=== PATIENT | female | born 1960 | race African-American/Black ===

== ENCOUNTER 2017-08-07 09:36 | Observation (INO) | payer SELFPAY ==
[~2017-08-07] VITALS: Ht 175.3 cm; Wt 77.6 kg
[~2017-08-07 09:36] MED LIST: BUDE6HFA INH; DIGO.25 PO; HYDCHL12.5 PO; Ipratr-Albuterol3 ML NEB; PANT20 PO; PRED5 PO; RISE35 PO; SERT50 PO; VERA240ER PO; Ventolin5 MG/1 ML INH
[2017-08-07 09:57] LABS: BASOPHILS ABSOLUTE AUTO 0.07 K/mm3 (0.00-0.23); BASOPHILS PERCENT AUTO 1 % (0-2); EOSINOPHILS ABSOLUTE AUTO 0.11 K/mm3 (0.00-0.68); EOSINOPHILS PERCENT AUTO 1 % (0-6); Hematocrit 39.6 % (33.0-51.0); IMMATURE GRAN ABSOLUTE AUTO 0.06 K/mm3 (0.00-0.10); IMMATURE GRAN PERCENT AUTO 1 % (0-1); LYMPHOCYTES ABSOLUTE AUTO 4.78 K/mm3 (0.84-5.20); LYMPHOCYTES PERCENT AUTO 42 % (21-46); MONOCYTES PERCENT AUTO 8 % (4-13); Mean Corpuscular HGB 29.3 pg (26.0-34.0); Mean Corpuscular HGB Conc 32.8 g/dL (31.5-36.5); Mean Corpuscular Volume 89 fL (80-100); Mean Platelet Volume 11.2 fL (9.1-12.4); NEUTROPHILS PERCENT AUTO 48 % (41-73); Platelet Count 307 K/mm3 (150-400); RDW Coefficient Variation 14.8 % (11.7-14.2); RDW Standard Deviation 48.2 fL (35.1-46.3); Red Blood Cell Count 4.44 M/mm3 (3.80-5.20); White Blood Cell Count 11.32 K/mm3 (4.00-11.30)
[2017-08-07 10:15] LABS: PCO2 Arterial 32.3 mmHg (35-45); PO2 Arterial 214 mmHg (80-100); pH Blood Arterial 7.51 (7.35-7.45)
[2017-08-07 10:17] LABS: Alanine Aminotransfer (ALT/SGP 24 U/L (12-78); Albumin, Blood 3.8 g/dL (3.4-5.0); Alk Phos 71 U/L (50-136); Anion Gap 8 mmol/L (6-16); Aspartate Aminotrans (AST/SGOT 17 U/L (12-37); Bilirubin, Total 0.3 mg/dL (0.1-1.0); Blood Urea Nitrogen 12 mg/dL (8-24); Bun/Creatinine Ratio 14.4 (12.0-20.0); CO2, Blood 28 mmol/L (21-32); Calcium, Blood 8.7 mg/dL (8.5-10.1); Chloride, Blood 104 mmol/L (98-108); Creatinine, Blood 0.83 mg/dL (0.40-1.00); Globulin, Blood 3.7 g/dL (2.2-4.0); Glomerular Filtration Rate >60 (60-); Glucose, Blood 294 mg/dL (70-99); Potassium, Blood 2.8 mmol/L (3.5-5.5); Sodium, Blood 140 mmol/L (136-145); Total Protein, Blood 7.5 g/dL (6.4-8.2); Troponin I 0.028 ng/mL (0.000-0.040)
[2017-08-07] MEDS ORDERED: TUSSIONEX PENN115 ML (10:27)
[2017-08-07] MEDS ORDERED: Xolair150 MG SQ (10:30)
[2017-08-09] MEDS ORDERED: Novolog100 UNIT/1 SC (13:50)
[2017-08-09] MEDS ORDERED: MONT5TCH PO (13:51)
[2017-08-09] MEDS ORDERED: TEMA30 PO (13:52)
[2017-08-09] MEDS ORDERED: ACCU-CHEK GUID1 EACH MC (13:55)
== END 2017-08-09 15:00 | disposition home or self-care (01) ==
LOC: ER 09:36 → ICUW 10:57 → ER 10:57 → ICUW 10:57 → ER 11:14 → PCU 11:14 → ICUW 11:14 → ICUE 11:42 → PCU 11:49 → ICUE 16:22 → PCU 17:29
PROVIDERS: Emergency Medicine
DX: J45.901 Unspecified asthma with (acute) exacerbation (principal); R06.03 Acute respiratory distress; J96.00 Acute respiratory failure, unspecified whether with hypoxia or hypercapnia; I10 Essential (primary) hypertension; M81.0 Age-related osteoporosis without current pathological fracture; E09.65 Drug or chemical induced diabetes mellitus with hyperglycemia; Z88.0 Allergy status to penicillin; Z85.3 Personal history of malignant neoplasm of breast; Z88.1 Allergy status to other antibiotic agents; Z88.5 Allergy status to narcotic agent; Z88.8 Allergy status to other drugs, medicaments and biological substances; Z79.899 Other long term (current) drug therapy; Z79.52 Long term (current) use of systemic steroids; Z79.01 Long term (current) use of anticoagulants
CPT/HCPCS: 36415; 36600; 71045; 80053; 82803; 82947; 84132; 84484; 85025; 93005; 93010; 94640; 94660; 94760; 96361; 96374; 96375; 96376; 99285; C9113; G0378; J1200; J1642; J1815; J2357; J2930; J3490; J7030; J7060

== ENCOUNTER 2018-12-25 09:54 | Emergency (ER) | payer OTHER ==
[~2018-12-25] VITALS: Ht 172.7 cm; Wt 79.4 kg
[~2018-12-25 09:54] MED LIST changes: +ACCU-CHEK GUID1 EACH MC; +MONT5TCH PO; +Novolog100 UNIT/1 SC; +TEMA30 PO; +TUSSIONEX PENN115 ML; +Xolair150 MG SQ
[2018-12-25] MEDS ORDERED: HYDCHL25 PO (10:38)
[2018-12-25] MEDS ORDERED: GABA300 PO (10:38)
[2018-12-25 10:39] LABS: BASOPHILS ABSOLUTE AUTO 0.05 K/mm3 (0.00-0.23); BASOPHILS PERCENT AUTO 0 % (0-2); EOSINOPHILS ABSOLUTE AUTO 0.03 K/mm3 (0.00-0.68); EOSINOPHILS PERCENT AUTO 0 % (0-6); Hematocrit 36.9 % (33.0-51.0); IMMATURE GRAN ABSOLUTE AUTO 0.04 K/mm3 (0.00-0.10); IMMATURE GRAN PERCENT AUTO 0 % (0-1); LYMPHOCYTES ABSOLUTE AUTO 1.98 K/mm3 (0.84-5.20); LYMPHOCYTES PERCENT AUTO 18 % (21-46); MONOCYTES ABSOLUTE AUTO 0.49 K/mm3 (0.16-1.47); MONOCYTES PERCENT AUTO 4 % (4-13); Mean Corpuscular HGB 28.6 pg (26.0-34.0); Mean Corpuscular HGB Conc 32.5 g/dL (31.5-36.5); Mean Corpuscular Volume 88 fL (80-100); Mean Platelet Volume 11.1 fL (9.1-12.4); NEUTROPHILS ABSOLUTE AUTO 8.64 K/mm3 (1.96-9.15); NEUTROPHILS PERCENT AUTO 77 % (41-73); Platelet Count 318 K/mm3 (150-400); RDW Coefficient Variation 14.6 % (11.7-14.2); RDW Standard Deviation 46.6 fL (35.1-46.3); White Blood Cell Count 11.23 K/mm3 (4.00-11.30)
[2018-12-25] MEDS ORDERED: Vitamin D2000 UNIT PO (10:39)
[2018-12-25 10:56] LABS: Alanine Aminotransfer (ALT/SGP 18 U/L (12-78); Albumin, Blood 3.7 g/dL (3.4-5.0); Alk Phos 46 U/L (50-136); Anion Gap 8 mmol/L (6-16); Aspartate Aminotrans (AST/SGOT 19 U/L (12-37); Bilirubin, Total 0.3 mg/dL (0.1-1.0); Blood Urea Nitrogen 17 mg/dL (8-24); Bun/Creatinine Ratio 24.4 (12.0-20.0); CO2, Blood 30 mmol/L (21-32); Calcium, Blood 9.3 mg/dL (8.5-10.1); Chloride, Blood 102 mmol/L (98-108); Globulin, Blood 3.6 g/dL (2.2-4.0); Glomerular Filtration Rate >60 (60-); Glucose, Blood 223 mg/dL (70-99); Potassium, Blood 2.9 mmol/L (3.5-5.5); Sodium, Blood 140 mmol/L (136-145); Total Protein, Blood 7.3 g/dL (6.4-8.2)
[2018-12-25] MEDS ORDERED: AIRDUO RESPICL1 EAC1 INH (12:18)
== END 2018-12-25 13:51 | disposition home or self-care (01) ==
LOC: ER 09:54
PROVIDERS: Emergency Medicine
DX: J45.901 Unspecified asthma with (acute) exacerbation (principal); J96.01 Acute respiratory failure with hypoxia; E87.6 Hypokalemia; E11.65 Type 2 diabetes mellitus with hyperglycemia; Z91.030 Bee allergy status; Z88.8 Allergy status to other drugs, medicaments and biological substances; Z91.018 Allergy to other foods; Z88.1 Allergy status to other antibiotic agents; Z88.5 Allergy status to narcotic agent; Z88.0 Allergy status to penicillin; Z79.899 Other long term (current) drug therapy; Z79.891 Long term (current) use of opiate analgesic
CPT/HCPCS: 71045; 80053; 85025; 93005; 93010; 94640; 94660; 96361; 96365; 96366; 96375; 99285-25; J1642; J2405; J2765; J2930; J3480; J7030

== ENCOUNTER 2020-05-20 10:26 | Emergency (ER) | payer OTHER ==
[~2020-05-20] VITALS: Ht 167.6 cm; Wt 79.4 kg
[~2020-05-20 10:26] MED LIST changes: +AIRDUO RESPICL1 EAC1 INH; +ALBU90OI INH; +ESCI20 PO; +FLUT1DIS8 INH; +GABA300 PO; +HYDCHL25 PO; +LOSA50 PO; +Loratadine10 MG PO; +MONT10T PO; +PRED20; +Refresh Plus1 EACH BOTHEYES; +SPIRIVA RESPIMAT4 GM INH; +Vitamin D2000 UNIT PO
[2020-05-20 11:14] LABS: BASOPHILS ABSOLUTE AUTO 0.03 K/mm3 (0.00-0.23); BASOPHILS PERCENT AUTO 0 % (0-2); EOSINOPHILS ABSOLUTE AUTO 0.06 K/mm3 (0.00-0.68); EOSINOPHILS PERCENT AUTO 1 % (0-6); Hematocrit 37.4 % (33.0-51.0); Hemoglobin 12.2 g/dL (11.5-16.0); IMMATURE GRAN ABSOLUTE AUTO 0.04 K/mm3 (0.00-0.10); IMMATURE GRAN PERCENT AUTO 1 % (0-1); LYMPHOCYTES ABSOLUTE AUTO 1.33 K/mm3 (0.84-5.20); LYMPHOCYTES PERCENT AUTO 16 % (21-46); MONOCYTES ABSOLUTE AUTO 0.43 K/mm3 (0.16-1.47); MONOCYTES PERCENT AUTO 5 % (4-13); Mean Corpuscular HGB 28.6 pg (26.0-34.0); Mean Corpuscular HGB Conc 32.6 g/dL (31.5-36.5); Mean Corpuscular Volume 88 fL (80-100); Mean Platelet Volume 11.1 fL (9.1-12.4); NEUTROPHILS PERCENT AUTO 78 % (41-73); Platelet Count 264 K/mm3 (150-400); RDW Coefficient Variation 14.7 % (11.7-14.2); RDW Standard Deviation 46.9 fL (35.1-46.3); Red Blood Cell Count 4.27 M/mm3 (3.80-5.20); White Blood Cell Count 8.49 K/mm3 (4.00-11.30)
[2020-05-20 11:18] LABS: PCO2 Arterial 39.5 mmHg (35-45); pH Blood Arterial 7.46 (7.35-7.45)
[2020-05-20 11:28] LABS: Alanine Aminotransfer (ALT/SGP 24 U/L (12-78); Albumin, Blood 3.6 g/dL (3.4-5.0); Albumin/Globulin Ratio 0.9 (0.8-1.8); Alk Phos 41 U/L (50-136); Anion Gap 6 mmol/L (6-16); Aspartate Aminotrans (AST/SGOT 22 U/L (12-37); Bilirubin, Total 0.4 mg/dL (0.1-1.0); Blood Urea Nitrogen 16 mg/dL (8-24); Bun/Creatinine Ratio 20.7 (12.0-20.0); CO2, Blood 27 mmol/L (21-32); Calcium, Blood 9.4 mg/dL (8.5-10.1); Chloride, Blood 106 mmol/L (98-108); Creatinine, Blood 0.77 mg/dL (0.40-1.00); Glomerular Filtration Rate >60 (60-); Glucose, Blood 161 mg/dL (70-99); Potassium, Blood 3.7 mmol/L (3.5-5.5); Sodium, Blood 139 mmol/L (136-145); Total Protein, Blood 7.6 g/dL (6.4-8.2)
[2020-05-20] MEDS ORDERED: ALBU90OI INH (13:22)
[2020-05-20] MEDS ORDERED: BUDESONIDE0.5 MG/2 M INH (13:23)
[2020-05-20] MEDS ORDERED: BUPR75 PO (13:23)
[2020-05-20] MEDS ORDERED: ARTIFICIAL TEAR15 M2 BOTHEYES (13:24)
[2020-05-20] MEDS ORDERED: FLUT1DIS8 INH (13:25)
[2020-05-20] MEDS ORDERED: ESCI20 PO (13:25)
[2020-05-20] MEDS ORDERED: THERA-D2000 UNIT PO (13:25)
[2020-05-20] MEDS ORDERED: GABAPENTIN600 MG PO (13:26)
[2020-05-20] MEDS ORDERED: LORA10ER PO (13:26)
[2020-05-20] MEDS ORDERED: LOSA50 PO (13:26)
[2020-05-20] MEDS ORDERED: MECL25 PO (13:27)
[2020-05-20] MEDS ORDERED: MONT10T PO (13:27)
[2020-05-20] MEDS ORDERED: METF500 PO (13:27)
[2020-05-20] MEDS ORDERED: KLOR-CON 1010 ME1 PO (13:28)
[2020-05-20] MEDS ORDERED: XOLAIR150 MG/1 M SC (13:28)
[2020-05-20] MEDS ORDERED: OMEP20ER PO (13:28)
[2020-05-20] MEDS ORDERED: PRED5 PO (13:28)
[2020-05-20] MEDS ORDERED: RISE35 PO (13:29)
[2020-05-20] MEDS ORDERED: VERA240ER PO (13:29)
[2020-05-20] MEDS ORDERED: SPIRIVA RESPIMAT4 G3 INH (13:29)
== END 2020-05-20 14:02 | disposition home or self-care (01) ==
LOC: ER 10:26
PROVIDERS: Emergency Medicine
DX: J45.901 Unspecified asthma with (acute) exacerbation (principal); I10 Essential (primary) hypertension; Z79.899 Other long term (current) drug therapy; Z79.52 Long term (current) use of systemic steroids; Z91.030 Bee allergy status; Z91.018 Allergy to other foods; Z88.8 Allergy status to other drugs, medicaments and biological substances; Z88.1 Allergy status to other antibiotic agents; Z88.0 Allergy status to penicillin; Z88.5 Allergy status to narcotic agent
CPT/HCPCS: 36600; 70360; 71045; 80053; 82803; 85025; 93005; 93010; 94640; 94644; 94660; 96361; 96365; 96375; 99285-25; J2060; J2930; J3475; J7030

== ENCOUNTER 2021-12-10 10:55 | Inpatient (IN) | payer OTHER ==
[~2021-12-10] VITALS: Ht 172.7 cm; Wt 76.7 kg
[~2021-12-10 10:55] MED LIST changes: +ARTIFICIAL TEAR15 M2 BOTHEYES; +BUDESONIDE0.5 MG/2 M INH; +BUPR75 PO; +GABAPENTIN600 MG PO; +HUMULIN R100 UNIT/2 SC; +LORA10ER PO; +MECL25 PO; +METF500 PO; +OMEP20ER PO; +POTA10T PO; +Prednisone20 MG PO; +SPIRIVA RESPIMAT4 G3 INH; +THERA-D2000 UNIT PO; +XOLAIR150 MG/1 M SC
[2021-12-10 11:08] LABS: BASOPHILS ABSOLUTE AUTO 0.07 K/mm3 (0.00-0.23); BASOPHILS PERCENT AUTO 1 % (0-2); EOSINOPHILS ABSOLUTE AUTO 0.18 K/mm3 (0.00-0.68); EOSINOPHILS PERCENT AUTO 2 % (0-6); Hemoglobin 11.9 g/dL (11.5-16.0); IMMATURE GRAN ABSOLUTE AUTO 0.02 K/mm3 (0.00-0.10); IMMATURE GRAN PERCENT AUTO 0 % (0-1); LYMPHOCYTES ABSOLUTE AUTO 3.46 K/mm3 (0.84-5.20); LYMPHOCYTES PERCENT AUTO 43 % (21-46); MONOCYTES ABSOLUTE AUTO 0.84 K/mm3 (0.16-1.47); MONOCYTES PERCENT AUTO 10 % (4-13); Mean Corpuscular HGB 28.1 pg (26.0-34.0); Mean Corpuscular HGB Conc 33.1 g/dL (31.5-36.5); Mean Corpuscular Volume 85 fL (80-100); Mean Platelet Volume 10.9 fL (9.1-12.4); NEUTROPHILS ABSOLUTE AUTO 3.51 K/mm3 (1.96-9.15); NEUTROPHILS PERCENT AUTO 44 % (41-73); Platelet Count 372 K/mm3 (150-400); RDW Coefficient Variation 14.1 % (11.7-14.2); RDW Standard Deviation 43.9 fL (35.1-46.3); Red Blood Cell Count 4.23 M/mm3 (3.80-5.20); White Blood Cell Count 8.08 K/mm3 (4.00-11.30)
[2021-12-10 11:11] LABS: PCO2 Arterial 46.3 mmHg (35-45); PO2 Arterial 219 mmHg (80-100); pH Blood Arterial 7.39 (7.35-7.45)
[2021-12-10 11:24] LABS: Albumin, Blood 3.7 g/dL (3.4-5.0); Bilirubin, Total 0.3 mg/dL (0.1-1.0); Bun/Creatinine Ratio 16.1 (12.0-20.0); Calcium, Blood 9.3 mg/dL (8.5-10.1); Creatinine, Blood 0.75 mg/dL (0.40-1.00); Globulin, Blood 3.8 g/dL (2.2-4.0); Total Protein, Blood 7.5 g/dL (6.4-8.2)
[2021-12-10 12:17] LABS: Influenza A, PCR NEGATIVE (NEGATIVE); Influenza B, PCR NEGATIVE (NEGATIVE); Resp Syncytial Virus, PCR NEGATIVE (NEGATIVE); SARS-Cov-2 (COVID-19) PCR, MMC NEGATIVE (NEGATIVE)
--- NOTE | 2021-12-10 18:51 | NUR ---
SHIFT SUMMARY- PT ADMITTED THROUGH THE ED FOR ACUTE RESPIRATORY FAILURE/ASTHMA EXACERBATION. THIS IS AN ISSUE THE PT HAS FREQUENTLY AND MANAGES WELL AT HOME, FOR THE MOST PART. PT HAS A Hx OF BREAST CANCER SP DOUBLE MASTECTOMY WITH RECONSTRUCTION THAT FAILED AND WAS REMOVED. PT HAS SEVERAL ALLERGIES TO FOODS AND MEDICATIONS THAT CAUSE ANAPHYLACTIC RESPONSE. SIGNS MADE AND PLACED ON THE DOOR TO HER ROOM TO WARN STAFF NO CARROTS OR PEACHES OR MRS MARINA (CONTAINS CARROTS) THE PT HAS AN ANAPHYLACTIC REACTION TO EATING FOODS THAT HAVE COME IN CONTACT WITH THESE FOODS. KITCHEN NOTIFIED VERBALLY, DIET ORDER CHANGED TO SHOW THESE DISLIKES AND A FOOD REQUEST ORDER WAS PLACED STATING DEATHLY ALLERGIC TO THESE ITEMS. PT IS AWARE AND PAYS ATTENTION TO WHAT SHE EATS. PT RECIEVED PO ATIVAN THIS EVENING AND BREATHING SEEMS TO HAVE RELAXED AND SHE IS RESTING IN BED, HOB ELEVATED, SPOUSE AT THE BEDSIDE. PT STATES SHE CHECKS HER BG DAILY AND HER NUMBERS AT HOME AR TYPICALLY IN THE 120'S. BG HERE WAS 254 AFTER THE PT RECIEVED IV SOLUMEDROL. PT IS ALERT AND ORIENTED AND INDEPENDENT IN THE ROOM. IN BED, SPOUSE AT THE BEDSIDE NO S&S OF DISTRESS AT THIS TIME WILL CTM AND PASS ON TO NIGHT RN IN BEDSIDE REPORT.
--- NOTE | 2021-12-11 04:04 | NUR ---
PT IS A/OX4, PLEASANT AND COOPERATIVE. THE PT IS UP IND IN HER ROOM. THE PT APPEARS TO BE BREATHING EASILY ON RA AT THIS TIME. THE PT WEARS A CPAP AT NIGHT WHILE SLEEPING. THE PT WAS MEDICATED FOR ANXIETY X1 TONIGHT. THE PT REPORTED SOME SLIGHT RIGHT SIDE OF THROAT SWELLING/TENDERNESS A CALL WAS MADE TO DR. FINN PER THE PT'S REQUEST AND ORDERS WERE GIVEN AND ADMINISTRATED. THE PT WAS MEDICATED FOR ELEVATED BP THIS AM. THE PT WAS AWAKE FOR MOST OF THE NIGHT. CALL LIGHT IN REACH. WILL CONTINUE TO MONITOR AND ASSESS FOR CHANGES
[2021-12-11 10:59] LABS: Calcium, Blood 9.2 mg/dL (8.5-10.1); Creatinine, Blood 0.67 mg/dL (0.40-1.00); Potassium, Blood 3.4 mmol/L (3.5-5.5)
[2021-12-11] MEDS ORDERED: TRAZ100 PO (15:10)
[2021-12-11] MEDS ORDERED: HUMALOG JU100 UNIT/2 SC (15:12)
[2021-12-11] MEDS ORDERED: Ativan1 MG PO (15:17)
--- NOTE | 2021-12-11 15:42 | NUR ---
DISCHARGE NOTE- PT WAS GIVEN VERBAL AND WRITTEN DISCHARGE INSTRUCTIONS AND ACKNOWLEDGED UNDERSTANDING OF THEM. IV AND TELE DC'D PRIOR TO DISCHARGE. WHEN IV WAS PULLED THERE WAS HEAVY BLEEDING FROM THE INSERTION POINT. BLEEDING WAS STOPPED PRIOR TO DISCHARGE. PT WAS ESCORTED OUT VIA WC BY THE FRONT END MECHANIC NO FURTHER QUESTIONS, NO S&S OF DISTRESS NOTED AT THE TIME OF DISCHARGE.
== END 2021-12-11 15:40 | disposition home or self-care (01) | DRG 189 ==
LOC: ER 10:55 → MEDS 12:59
PROVIDERS: Emergency Medicine; Family Medicine; ADMIT Internal Medicine
PROC: 5A09357 Assistance with Respiratory Ventilation, Less than 24 Consecutive Hours, Continuous Positive Airway Pressure (ICD-10-PCS; principal; 2021-12-10)
DX: J96.01 Acute respiratory failure with hypoxia (principal); J45.51 Severe persistent asthma with (acute) exacerbation; I10 Essential (primary) hypertension; Z20.822 Contact with and (suspected) exposure to COVID-19; G47.00 Insomnia, unspecified; Z79.899 Other long term (current) drug therapy; Z88.0 Allergy status to penicillin; Z88.5 Allergy status to narcotic agent; Z88.8 Allergy status to other drugs, medicaments and biological substances; M81.0 Age-related osteoporosis without current pathological fracture; E09.9 Drug or chemical induced diabetes mellitus without complications; T38.0X5A Adverse effect of glucocorticoids and synthetic analogues, initial encounter; Z85.3 Personal history of malignant neoplasm of breast; I48.91 Unspecified atrial fibrillation; Z90.13 Acquired absence of bilateral breasts and nipples; Z90.49 Acquired absence of other specified parts of digestive tract; Z90.710 Acquired absence of both cervix and uterus; Z91.030 Bee allergy status; Z91.018 Allergy to other foods; J30.2 Other seasonal allergic rhinitis; F41.9 Anxiety disorder, unspecified
CPT/HCPCS: 0241U; 36415; 36600; 71045; 80048; 80053; 82803; 82947; 85025; 93005; 93010; 94640; 94644; 94660; 94664; 94760; 94762; 96365; 96366; 96372-59; 96375; 99285-25; A9270; J0360; J1200; J1650; J1720; J2920; J3475; J7030

== ENCOUNTER 2022-03-03 13:51 | Emergency (ER) | payer OTHER ==
[~2022-03-03] VITALS: Ht 165.1 cm; Wt 68.0 kg
[~2022-03-03 13:51] MED LIST changes: +Ativan1 MG PO; +HUMALOG JU100 UNIT/2 SC; +TRAZ100 PO
[2022-03-03 14:25] LABS: Base Excess Venous 5.4 mmol/L; Bicarbonate Venous 28.8 mmol/L (24.0-30.0); PCO2 Venous 41.1 mmHg (38-42); pH Blood Venous 7.46 (7.34-7.37)
== END 2022-03-03 16:57 | disposition home or self-care (01) ==
LOC: ER 13:51
PROVIDERS: Student in an Organized Health Care Education/Training Program
DX: T78.1XXA Other adverse food reactions, not elsewhere classified, initial encounter (principal); R06.2 Wheezing; I10 Essential (primary) hypertension; M81.0 Age-related osteoporosis without current pathological fracture; Z91.030 Bee allergy status; Z91.018 Allergy to other foods; Z88.1 Allergy status to other antibiotic agents; Z88.8 Allergy status to other drugs, medicaments and biological substances; Z88.0 Allergy status to penicillin; Z79.899 Other long term (current) drug therapy; Z79.4 Long term (current) use of insulin
CPT/HCPCS: 71045; 82803; 94644; 94664; J0171; J1200; J2930

== ENCOUNTER 2022-08-23 09:30 | Inpatient (IN) | payer OTHER ==
[~2022-08-23] VITALS: Ht 172.7 cm; Wt 81.6 kg
[2022-08-23 09:45] LABS: Base Excess Venous 4.1 mmol/L; Bicarbonate Venous 27.4 mmol/L (24.0-30.0); PCO2 Venous 42.3 mmHg (38-42); pH Blood Venous 7.44 (7.34-7.37)
[2022-08-23 09:50] LABS: BASOPHILS ABSOLUTE AUTO 0.06 K/mm3 (0.00-0.23); BASOPHILS PERCENT AUTO 1 % (0-2); EOSINOPHILS ABSOLUTE AUTO 0.22 K/mm3 (0.00-0.68); EOSINOPHILS PERCENT AUTO 3 % (0-6); Hematocrit 34.4 % (33.0-51.0); Hemoglobin 11.2 g/dL (11.5-16.0); IMMATURE GRAN ABSOLUTE AUTO 0.03 K/mm3 (0.00-0.10); IMMATURE GRAN PERCENT AUTO 0 % (0-1); LYMPHOCYTES ABSOLUTE AUTO 2.86 K/mm3 (0.84-5.20); LYMPHOCYTES PERCENT AUTO 36 % (21-46); MONOCYTES ABSOLUTE AUTO 0.72 K/mm3 (0.16-1.47); MONOCYTES PERCENT AUTO 9 % (4-13); Mean Corpuscular HGB 27.9 pg (26.0-34.0); Mean Corpuscular HGB Conc 32.6 g/dL (31.5-36.5); Mean Corpuscular Volume 86 fL (80-100); Mean Platelet Volume 11.1 fL (9.1-12.4); NEUTROPHILS ABSOLUTE AUTO 4.13 K/mm3 (1.96-9.15); NEUTROPHILS PERCENT AUTO 52 % (41-73); Platelet Count 297 K/mm3 (150-400); RDW Coefficient Variation 14.6 % (11.7-14.2); RDW Standard Deviation 45.6 fL (35.1-46.3); Red Blood Cell Count 4.02 M/mm3 (3.80-5.20); White Blood Cell Count 8.02 K/mm3 (4.00-11.30)
[2022-08-23 10:05] LABS: Bun/Creatinine Ratio 17.5 (12.0-20.0); Calcium, Blood 8.9 mg/dL (8.5-10.1); Creatinine, Blood 0.69 mg/dL (0.40-1.00); Potassium, Blood 2.8 mmol/L (3.5-5.5)
[2022-08-23 13:12] LABS: Base Excess Venous 1.2 mmol/L; Bicarbonate Venous 25.1 mmol/L (24.0-30.0); PCO2 Venous 44.2 mmHg (38-42); pH Blood Venous 7.38 (7.34-7.37)
[2022-08-23 19:31] VITALS: BP 174/67
[2022-08-23 20:20] VITALS: BP 170/75
[2022-08-23 23:02] VITALS: BP 148/66
[2022-08-24 03:48] VITALS: BP 149/58
--- NOTE | 2022-08-24 04:47 | NUR ---
SHIFT SUMMARY PT IS A/Ox4 AND COOPERATIVE WITH CARE PROVIDED BY MEMBERS OF STAFF. ANSWERS QUESTIONS APPROPRIATELY AND ABLE TO MAKE HER NEEDS KNOWN. NO ACUTE EVENTS OVERNIGHT FOR PT WAS ABLE TO SLEEP T/O MOST OF THE SHIFT. RESPIRATORY CHEEK, MAINTAINED SPO2 >94% ON RA, INTERMITTENT EPISODES OF SOB WITH PT STATING "MY LUNGS FEEL TIGHT". SCHEDULED BREATHING TX WELL ADMIN. OF IV STEROIDS HAVE BEEN EFFECTIVE. USED BIPAP AT NIGHT WITH 12/6 @30% FIO2. CARDIAC CHEEK, REMAINED IN SR WITH RATE RANGING FROM 60-80. NO C/O CP OR PRESSURE T/O THE NIGHT. SBP A LITTLE HYPERTENSIVE, BUT RESPONDED WELL TO SCHEDULED MEDICATIONS. PAIN HAS BEEN ADEQUATELY MANAGED ORDERED VIA EMAR. ABLE TO ABULATE TO BATHROOM TO VOID WITH LITTLE ASSIST FROM STAFF. MEDIPORT PRESENT WITH VERBAL CONSENT FROM PT TO USE, BUT MEDIPORT NOT ACCESSED AT THIS TIME. NO NEW ORDERS AT THIS TIME, WILL REPORT TO ONCOMING RN. SHAWN MOISE T/O THE SHIFT
[2022-08-24 06:14] LABS: Bun/Creatinine Ratio 24.9 (12.0-20.0); Calcium, Blood 9.5 mg/dL (8.5-10.1); Creatinine, Blood 0.6 mg/dL (0.40-1.00)
[2022-08-24 07:00] VITALS: BP 149/62
[2022-08-24 11:32] VITALS: BP 149/65
--- NOTE | 2022-08-24 12:26 | NUR ---
RN NOTE OF 12:15 THE PATIENT WAS SERVED A DISH WITH CARROTS AND THE PATIENT HAD A SEVER ALERGIC REACTION. NO CODE OR HYDRAULIC MECHANIC WAS CALLED THE PROVIDER WAS NOTIFIED AND 50 MG OF DIPHENHYDRAMINE WAS GIVEN VIA IV AND EPI 1 MG WAS ADMINISTERED SHORTLY THERE AFTER. THE PATIENT IS STABLE AND WE WILL CONTINUE TO MONITOR.
--- NOTE | 2022-08-24 14:09 | NUR ---
RN/DAY SHIFT SUMMARY MORNING SHIFT REPORT RECEIVED DURING BEDSIDE GREETING WITH PATIENT. PATIENT ASSESSMENT COMPLETED WITH MEDICATION AND DM BLOOD SUGAR MANAGEMENT. THE PATIENT IS PLEASENT AND EAGER TO SPEAK ABOUT BEING A . THE PATIENT HAD AN ALLERGIC REACTION DURING LUNCH AND WAS GIVEN 50 MG OF DIPHENHYDRAMINE AND 1 MG OF EPI AND THE PATIENT THEN STABLIZED. CONTINUE TO MONITOR UNTIL NIGHT NURSE ARRIVES.
[2022-08-24 16:28] VITALS: BP 163/66
[2022-08-24 20:17] VITALS: BP 137/52
[2022-08-24 23:33] VITALS: BP 145/71
[2022-08-25 04:15] VITALS: BP 134/68
--- NOTE | 2022-08-25 05:46 | NUR ---
SHIFT SUMMARY PT A&Ox4, CALLS AND COMMUNCIATES NEEDS APPROPRIATLEY. BP STABLE, SINUS 60's, DENIES CP/PRESSURE. SpO2> 92% RA/CPAP, DENIES SOB. PT IND IN ROOM. NO OTHER EVENTS, WILL REPORT TO ONCOMING RN.
[2022-08-25 07:17] VITALS: BP 174/80
[2022-08-25] MEDS ORDERED: METPRE4DP PO (10:05)
[2022-08-25] MEDS ORDERED: ELIQUIS5 M2 PO (10:08)
--- NOTE | 2022-08-25 10:56 | NUR ---
RN/DAY SHIFT SUMMARY MORNING REPORT RECIEVED AT BEDSIDE DURING PATIENT GREETING. THE PATIENT WAS ASSESSED AND MEDICATED PRIOR TO RECIEVING DISCHARGE ORDERS. THE PATIENT IS PLEASANTLY AWAITING THE ARRIVAL OF HER FOR THE TRIP HOME POST DISCHARGE.
== END 2022-08-25 11:45 | disposition home or self-care (01) | DRG 202 ==
LOC: ER 09:30 → PCU 09:31
PROVIDERS: Family Medicine; Student in an Organized Health Care Education/Training Program; ADMIT Internal Medicine
PROC: 5A09357 Assistance with Respiratory Ventilation, Less than 24 Consecutive Hours, Continuous Positive Airway Pressure (ICD-10-PCS; principal; 2022-08-24)
PROC: 02HV33Z Insertion of Infusion Device into Superior Vena Cava, Percutaneous Approach (ICD-10-PCS; 2022-08-24)
DX: J45.51 Severe persistent asthma with (acute) exacerbation (principal); B37.0 Candidal stomatitis; I48.20 Chronic atrial fibrillation, unspecified; I10 Essential (primary) hypertension; E87.6 Hypokalemia; M81.0 Age-related osteoporosis without current pathological fracture; K21.9 Gastro-esophageal reflux disease without esophagitis; T38.0X5A Adverse effect of glucocorticoids and synthetic analogues, initial encounter; E09.40 Drug or chemical induced diabetes mellitus with neurological complications with diabetic neuropathy, unspecified; G47.00 Insomnia, unspecified; Z90.49 Acquired absence of other specified parts of digestive tract; Z90.710 Acquired absence of both cervix and uterus; Z90.13 Acquired absence of bilateral breasts and nipples; Z85.3 Personal history of malignant neoplasm of breast; Z88.0 Allergy status to penicillin; Z88.1 Allergy status to other antibiotic agents; Z88.8 Allergy status to other drugs, medicaments and biological substances; Z91.030 Bee allergy status; Z91.018 Allergy to other foods; Z79.4 Long term (current) use of insulin; Z79.01 Long term (current) use of anticoagulants; Z79.51 Long term (current) use of inhaled steroids; Z79.52 Long term (current) use of systemic steroids; Z79.899 Other long term (current) drug therapy
CPT/HCPCS: 36415; 71045; 80048; 82803; 82947; 83735; 84132; 85025; 93005; 93010; 94640; 94644; 94660; 94664; 94760; 94762; 96372; 96374; 96375; 96376; 99285-25; A9270; G0378; J0171; J1200; J1885; J2405; J2930; J3475

== ENCOUNTER 2023-07-11 11:21 | Observation (INO) | payer OTHER ==
[~2023-07-11] VITALS: Ht 172.7 cm; Wt 82.6 kg
[~2023-07-11 11:21] MED LIST changes: +ELIQUIS5 M2 PO; +METPRE4DP PO
[2023-07-11] MEDS ORDERED: LORazepam 2 MG/ML 1ML Injection IV ONE (11:30)
[2023-07-11 11:40] LABS: PO2 Arterial 151 mmHg (80-100); pH Blood Arterial 7.46 (7.35-7.45)
[2023-07-11 11:59] LABS: BASOPHILS ABSOLUTE AUTO 0.06 K/mm3 (0.00-0.23); BASOPHILS PERCENT AUTO 1 % (0-2); EOSINOPHILS ABSOLUTE AUTO 0.12 K/mm3 (0.00-0.68); EOSINOPHILS PERCENT AUTO 1 % (0-6); Hemoglobin 11.7 g/dL (11.5-16.0); IMMATURE GRAN ABSOLUTE AUTO 0.07 K/mm3 (0.00-0.10); IMMATURE GRAN PERCENT AUTO 1 % (0-1); LYMPHOCYTES ABSOLUTE AUTO 2.48 K/mm3 (0.84-5.20); LYMPHOCYTES PERCENT AUTO 27 % (21-46); MONOCYTES ABSOLUTE AUTO 0.71 K/mm3 (0.16-1.47); MONOCYTES PERCENT AUTO 8 % (4-13); Mean Corpuscular HGB 28.5 pg (26.0-34.0); Mean Corpuscular HGB Conc 33.4 g/dL (31.5-36.5); Mean Corpuscular Volume 85 fL (80-100); Mean Platelet Volume 11.5 fL (9.1-12.4); NEUTROPHILS ABSOLUTE AUTO 5.78 K/mm3 (1.96-9.15); NEUTROPHILS PERCENT AUTO 63 % (41-73); Platelet Count 304 K/mm3 (150-400); RDW Coefficient Variation 14.6 % (11.7-14.2); RDW Standard Deviation 45.4 fL (35.1-46.3); White Blood Cell Count 9.22 K/mm3 (4.00-11.30)
[2023-07-11 12:37] LABS: Albumin, Blood 3.4 g/dL (3.4-5.0); Bilirubin, Total 0.2 mg/dL (0.1-1.0); Bun/Creatinine Ratio 17.8 (12.0-20.0); Calcium, Blood 9.3 mg/dL (8.5-10.1); Creatinine, Blood 0.79 mg/dL (0.40-1.00); Globulin, Blood 3.4 g/dL (2.2-4.0); Potassium, Blood 2.9 mmol/L (3.5-5.5); Total Protein, Blood 6.8 g/dL (6.4-8.2)
[2023-07-11] MEDS ORDERED: Potassium Chloride 20 MEQ TabCR PO ONE (12:40)
[2023-07-11] MEDS ORDERED: Albuterol 2.5 MG/3 ML VIAL INH SCH ×2 (13:20→16:05)
[2023-07-11] MEDS ORDERED: Albuterol 2.5 MG/3 ML VIAL INH PRN (14:10)
[2023-07-11] MEDS ORDERED: Ondansetron HCl 2 MG / ML 2ML Vial IV PRN (14:15)
[2023-07-11] MEDS ORDERED: Potassium Chloride 40 MEQ in NS 250 ML IV ONE (14:20)
[2023-07-11] MEDS ORDERED: FentaNYL Citrate 50 MCG/ML 2 ML Injection IV ONE (14:20)
[2023-07-11] MEDS ORDERED: FentaNYL Citrate 50 MCG/ML 2 ML Injection IV PRN (14:25)
[2023-07-11] MEDS ORDERED: Mometasone/Formoterol MDI 200/5 mcg 13 GM INH SCH (16:00)
[2023-07-11] MEDS ORDERED: Tiotropium Bromide 2.5 MCG/ACT MIST INHAL (10 ACT/4 GM) INH SCH (16:00)
[2023-07-11] MEDS ORDERED: MethylPREDNISolone Sod Succ 125 MG Vial IV SCH (16:00)
[2023-07-11] MEDS ORDERED: Insulin Human Lispro 100 Units/ML 3ML Syringe SC SCH (16:30)
[2023-07-11] MEDS ORDERED: CITALOPRAM HBR20 M9 PO (17:15)
[2023-07-11] MEDS ORDERED: Vitamin D1000 UNI1 PO (17:22)
[2023-07-11] MEDS ORDERED: EPIPEN0.3 MG/0.3 IM (17:22)
[2023-07-11] MEDS ORDERED: Gabapentin 300 MG Cap PO SCH (21:00)
[2023-07-11] MEDS ORDERED: Apixaban 5 MG Tab PO SCH (21:00)
[2023-07-11] MEDS ORDERED: Montelukast Sodium 10 MG Tab PO SCH (21:00)
[2023-07-11] MEDS ORDERED: Insulin Glargine-Yfgn 100 Unit/mL 3 ML SYR SC SCH (21:00)
[2023-07-11] MEDS ORDERED: Losartan Potassium 50 MG Tab PO SCH (21:00)
[2023-07-11] MEDS ORDERED: TraZODone HCl 100 MG Tab PO SCH (21:00)
[2023-07-11] MEDS ORDERED: Verapamil HCL 240 MG TABCR PO SCH (21:00)
[2023-07-11 21:07] VITALS: BP 153/70
[2023-07-11 23:17] VITALS: BP 138/80
[2023-07-12 03:27] VITALS: BP 156/77
[2023-07-12 04:20] LABS: Bun/Creatinine Ratio 23.7 (12.0-20.0); Calcium, Blood 9.3 mg/dL (8.5-10.1); Creatinine, Blood 0.63 mg/dL (0.40-1.00); Potassium, Blood 4.3 mmol/L (3.5-5.5)
--- NOTE | 2023-07-12 04:45 | NUR ---
SHIFT SUMMARY PT A&Ox4, CALLS AND COMMUNICATES NEEDS APPROPRIATELY. BP STABLE, SINUS 70-90's, DENIES CP/PRESSURE. SpO2> 92% RA WHILE AWAKE, PT WORE BIPAP WHILE ASLEEP. CONTINENT OF UNIRE, NO BM THIS SHIFT. IND IN ROOM. C/O GENERAL PAIN, DENIED PAIN MEDICATION. PT WANTING TO GO HOME TODAY. NO OTHER EVENTS, WILL REPORT TO ONCOMING RN.
[2023-07-12] MEDS ORDERED: Pantoprazole Sodium 40 MG Injection IV SCH (06:00)
[2023-07-12 07:35] VITALS: BP 163/87
[2023-07-12] MEDS ORDERED: Enoxaparin 40 MG/0.4 ML SYR SC SCH (09:00)
[2023-07-12 11:41] VITALS: BP 181/74
[2023-07-12 13:02] VITALS: BP 181/74
[2023-07-12] MEDS ORDERED: LANTUS SOL100 UNIT/1 SC (14:30)
[2023-07-12] MEDS ORDERED: DULERA 200 MCG-13 GM INH (14:31)
[2023-07-12] MEDS ORDERED: Prednisone10 MG PO (14:32)
--- NOTE | 2023-07-12 14:47 | NUR ---
Patient is sitting on EOB and alert. She tells me about the events that led to her admission to the hospital, her on going liriano with very reactive lungs and the possible d/c planned for this day. She talks about her 13 yrs in the [employer], her deployment to [email or web address] and the lasting health battles she has had since. She talks about her spouse, the wonderful 16 day [employer] cruise she has upcoming and her desire to stay well for these kinds of events in life. I provide therapeutic listening and prayer. Patient responded with gratitude for the visit.
== END 2023-07-12 14:51 | disposition home or self-care (01) ==
LOC: ER 11:21 → PCU 11:22 → ERHOLD 11:22 → PCU 16:27
PROVIDERS: Emergency Medicine; ADMIT Internal Medicine
DX: J45.51 Severe persistent asthma with (acute) exacerbation (principal); E87.6 Hypokalemia; I48.0 Paroxysmal atrial fibrillation; E09.9 Drug or chemical induced diabetes mellitus without complications; T38.0X5A Adverse effect of glucocorticoids and synthetic analogues, initial encounter; G47.33 Obstructive sleep apnea (adult) (pediatric); I10 Essential (primary) hypertension; F41.9 Anxiety disorder, unspecified; Z85.3 Personal history of malignant neoplasm of breast; Z90.13 Acquired absence of bilateral breasts and nipples; Z79.01 Long term (current) use of anticoagulants; Z79.4 Long term (current) use of insulin; Z79.899 Other long term (current) drug therapy; Z88.1 Allergy status to other antibiotic agents; Z91.030 Bee allergy status; Z88.0 Allergy status to penicillin; Z88.8 Allergy status to other drugs, medicaments and biological substances; Z91.018 Allergy to other foods
CPT/HCPCS: 36415; 36600; 71045; 80048; 80053; 82803; 82947; 84484; 85025; 94640; 94644; 94645; 94660; 94664; 94762; 96365; 96366; 96375; 96376; 99285-25; A9270; C9113; G0378; J1815; J2060; J2919; J3010; J3480; J7050

== ENCOUNTER 2024-03-19 10:51 | Emergency (ER) | payer OTHER ==
[~2024-03-19] VITALS: Ht 172.7 cm; Wt 79.4 kg
[~2024-03-19 10:51] MED LIST changes: +CITALOPRAM HBR20 M9 PO; +DULERA 200 MCG-13 GM INH; +EPIPEN0.3 MG/0.3 IM; +LANTUS SOL100 UNIT/1 SC; +Prednisone10 MG PO; +Vitamin D1000 UNI1 PO
[2024-03-19] MEDS ORDERED: MethylPREDNISolone Sod Succ 125 MG Vial IV ONE (11:05)
[2024-03-19] MEDS ORDERED: Ipratropium/Albuterol SulF 2.5-0.5MG/3 ML Amp INH ONE (11:05)
[2024-03-19] MEDS ORDERED: Mag Sulfate 1 GM/D5% 100ML 100 ML IV ONE (11:05)
[2024-03-19] MEDS ORDERED: DiphenhydrAMINE HCl 50 MG/ML 1ML Vial IV ONE (11:10)
[2024-03-19] MEDS ORDERED: EPINEPhrine HCl 1 MG/ML 1ML Amp IM ONE (11:30)
[2024-03-19] MEDS ORDERED: EpiNEPhrine 1 MG/1 ML 1ML Vial IM ONE (11:35)
[2024-03-19] MEDS ORDERED: EPINEPHrine HCL 11.25 MG/0.5 ML VIAL INH ONE (11:45)
[2024-03-19] MEDS ORDERED: OZEMPIC1 MG/0.72 (11:58)
[2024-03-19 12:31] LABS: BASOPHILS ABSOLUTE AUTO 0.01 K/mm3 (0.00-0.23); BASOPHILS PERCENT AUTO 0 % (0-2); EOSINOPHILS PERCENT AUTO 0 % (0-6); Hematocrit 34.6 % (33.0-51.0); Hemoglobin 11.5 g/dL (11.5-16.0); IMMATURE GRAN ABSOLUTE AUTO 0.09 K/mm3 (0.00-0.10); IMMATURE GRAN PERCENT AUTO 1 % (0-1); LYMPHOCYTES ABSOLUTE AUTO 2.28 K/mm3 (0.84-5.20); LYMPHOCYTES PERCENT AUTO 27 % (21-46); MONOCYTES ABSOLUTE AUTO 0.38 K/mm3 (0.16-1.47); MONOCYTES PERCENT AUTO 5 % (4-13); Mean Corpuscular HGB Conc 33.2 g/dL (31.5-36.5); Mean Corpuscular Volume 87 fL (80-100); Mean Platelet Volume 10.9 fL (9.1-12.4); NEUTROPHILS PERCENT AUTO 67 % (41-73); Platelet Count 353 K/mm3 (150-400); RDW Coefficient Variation 14.2 % (11.7-14.2); RDW Standard Deviation 45.6 fL (35.1-46.3); Red Blood Cell Count 3.97 M/mm3 (3.80-5.20); White Blood Cell Count 8.46 K/mm3 (4.00-11.30)
[2024-03-19] MEDS ORDERED: SPIR25 PO (12:42)
[2024-03-19] MEDS ORDERED: VITAMIN D310 MC1 PO (12:43)
[2024-03-19] MEDS ORDERED: OZEMPIC0.25 MG/02 SC (12:44)
[2024-03-19 12:45] LABS: Bun/Creatinine Ratio 14.5 (12.0-20.0); Calcium, Blood 9.4 mg/dL (8.5-10.1); Creatinine, Blood 0.83 mg/dL (0.40-1.00); Potassium, Blood 3.7 mmol/L (3.5-5.5)
[2024-03-19] MEDS ORDERED: ALBU2.5V5 INH (12:45)
[2024-03-19 15:24] VITALS: BP 144/67
== END 2024-03-19 15:30 | disposition home or self-care (01) ==
LOC: ER 10:51
PROVIDERS: Emergency Medicine
DX: T88.6XXA Anaphylactic reaction due to adverse effect of correct drug or medicament properly administered, initial encounter (principal); J45.909 Unspecified asthma, uncomplicated; I48.91 Unspecified atrial fibrillation; E09.9 Drug or chemical induced diabetes mellitus without complications; T38.0X5A Adverse effect of glucocorticoids and synthetic analogues, initial encounter; Z79.01 Long term (current) use of anticoagulants; Z88.0 Allergy status to penicillin; Z88.1 Allergy status to other antibiotic agents; Z91.030 Bee allergy status; Z88.5 Allergy status to narcotic agent; Z88.8 Allergy status to other drugs, medicaments and biological substances; Z91.018 Allergy to other foods
CPT/HCPCS: 71045; 80048; 82947; 84484; 85025; 93005; 93010; 94640; 94664; 96365; 96366; 96372-59; 96375; 99285-25; J0171; J1200; J1642; J2919; J3475

== ENCOUNTER 2024-07-23 07:10 | Day surgery (SDC) | payer OTHER ==
[~2024-07-23] VITALS: Ht 172.7 cm; Wt 76.3 kg
[2024-07-23] VITALS (9 sets, daily range): BP systolic 106–159; BP diastolic 53–69
[~2024-07-23 07:10] MED LIST changes: +ALBU2.5V5 INH; +ALDACTONE100 MG PO; +DUPIXENT P300 MG/2 M SC; +IPRAT-ALBUT 0.5-3 ML INH; +NOVOLOG FL100 UNIT/3; +OZEMPIC0.25 MG/02 SC; +OZEMPIC1 MG/0.72; +POTCHL20ER PO; +VITAMIN D310 MC1 PO; +Voltaren100 GM TOP; +XOLAIR SC
[2024-07-23] MEDS ORDERED: Lactated Ringer's 1,000 ML IV SCH (07:40)
[2024-07-23] MEDS ORDERED: Clindamycin 600mg in D5W 50 ML IV SCH (07:40)
[2024-07-23] MEDS ORDERED: Bupivacaine 0.5% HCl 5 MG/ML 30MLVIAL ONE (08:14)
[2024-07-23] MEDS ORDERED: propofoL 20 ML IV ONE ×2 (08:37→10:41)
[2024-07-23] MEDS ORDERED: FentaNYL Citrate 50 MCG/ML 2 ML Injection ONE (08:37)
[2024-07-23] MEDS ORDERED: SuccINYLCHOLINE Chloride 100 MG/5 ML 5MLSYR ONE (08:38)
[2024-07-23] MEDS ORDERED: Midazolam HCl 1MG / ML 2ML Vial ONE (08:38)
[2024-07-23] MEDS ORDERED: Ketamine HCl 100 MG / ML 5ML Vial ONE (08:38)
[2024-07-23] MEDS ORDERED: Rocuronium Bromide 10 MG/ML 5ML Injection IV ONE (08:38)
[2024-07-23] MEDS ORDERED: Albuterol HFA200 ACT/6.7 GM INH ONE (08:39)
[2024-07-23] MEDS ORDERED: HYDROmorphone HCl/Pf 1MG SYR ONE (08:40)
[2024-07-23] MEDS ORDERED: Lidocaine HCl 2% 20 ML MDV ONE (09:36)
--- NOTE | 2024-07-23 09:53 | NUR ---
History, Chart, Medications and Allergies reviewed before start of procedure. Patient up to Ambulate independently. Gait steady. Pre-Op teaching done. Pt verbalizes understanding. Patient up to restroom to void prior to surgery with SBA. Spouse at bedside, glasses sent with spouse.
[2024-07-23] MEDS ORDERED: Phenylephrine HCl 100 MCG/ML-NS 10MLSYR (1MG/10ML) ONE (09:55)
[2024-07-23] MEDS ORDERED: Ondansetron HCl 2 MG / ML 2ML Vial IV PRN (10:00)
[2024-07-23] MEDS ORDERED: Albuterol 2.5 MG/3 ML VIAL INH PRN (10:05)
[2024-07-23] MEDS ORDERED: FentaNYL Citrate 50 MCG/ML 2 ML Injection IV PRN ×2 (10:05)
[2024-07-23] MEDS ORDERED: HYDROmorphone HCl/Pf 1MG SYR IV PRN ×2 (10:05)
[2024-07-23] MEDS ORDERED: Ondansetron HCl 2 MG / ML 2ML Vial ONE (10:06)
[2024-07-23] MEDS ORDERED: Ketorolac Tromethamine 30mg Vial ONE (10:06)
[2024-07-23] MEDS ORDERED: Metoclopramide HCl 5MG / ML 2ML Vial ONE (10:06)
[2024-07-23] MEDS ORDERED: Sugammadex Sodium 200 MG/2ML SDV (100 MG/ML) ONE (10:08)
[2024-07-23] MEDS ORDERED: HYDROmorphone HCl 2 MG Tab PO PRN (11:45)
--- NOTE | 2024-07-23 12:40 | NUR ---
Discharge instructions reviewed with patient. Patient verbalizes understanding. Copy given to patient to take home. Discharged via wheelchair to private car for ride home. Dressing to procedure site clean, dry, intact with no visible drainage, swelling, erythema or bruising noted.
[2024-09-03] MEDS ORDERED: SPIR25 PO (10:05)
[2024-09-03] MEDS ORDERED: VENL75ER PO (11:58)
[2024-09-06] MEDS ORDERED: FAMO20 PO (13:02)
[2024-09-06] MEDS ORDERED: SENN187 PO (13:03)
[2024-09-06] MEDS ORDERED: DELTASONE20 MG PO (13:05)
== END 2024-07-23 12:41 | disposition home or self-care (01) ==
LOC: ORSCMMR 07:10 → ORD 07:30 → ORSCMMR 08:30
PROVIDERS: Surgery
PROC: 0WUF0JZ Supplement Abdominal Wall with Synthetic Substitute, Open Approach (ICD-10-PCS; principal; 2024-07-23 08:30)
DX: K43.0 Incisional hernia with obstruction, without gangrene (principal); I10 Essential (primary) hypertension; I48.0 Paroxysmal atrial fibrillation; Z79.01 Long term (current) use of anticoagulants; E11.40 Type 2 diabetes mellitus with diabetic neuropathy, unspecified; Z79.4 Long term (current) use of insulin; Z79.899 Other long term (current) drug therapy; J45.909 Unspecified asthma, uncomplicated; Z85.3 Personal history of malignant neoplasm of breast; Z79.51 Long term (current) use of inhaled steroids
CPT/HCPCS: 82947; 84132; A9270; C1781; J0330; J1171; J1885; J2250; J2371; J2405; J2704; J2765; J3010; J7120

== ENCOUNTER 2025-01-02 09:44 | Inpatient (IN) | payer OTHER ==
[~2025-01-02] VITALS: Ht 167.6 cm; Wt 59.4 kg
[~2025-01-02 09:44] MED LIST changes: +DELTASONE20 MG PO; +FAMO20 PO; +SENN187 PO; +SPIR25 PO; +VENL75ER PO
[2025-01-02] MEDS ORDERED: Magnesium Sulf 2 GM/Water 50ML 50 ML IV ONE (09:50)
[2025-01-02] MEDS ORDERED: Albuterol 2.5 MG/3 ML VIAL INH SCH (10:05)
[2025-01-02] MEDS ORDERED: Ipratropium Bromide INH 0.02% 0.5 mg/2.5ML Vial INH SCH (10:05)
[2025-01-02 10:49] LABS: BASOPHILS ABSOLUTE AUTO 0.05 K/mm3 (0.00-0.23); BASOPHILS PERCENT AUTO 0 % (0-2); EOSINOPHILS ABSOLUTE AUTO 0.00 K/mm3 (0.00-0.68); EOSINOPHILS PERCENT AUTO 0 % (0-6); Hematocrit 33.3 % (33.0-51.0); Hemoglobin 11.4 g/dL (11.5-16.0); IMMATURE GRAN ABSOLUTE AUTO 0.21 K/mm3 (0.00-0.10); IMMATURE GRAN PERCENT AUTO 2 % (0-1); LYMPHOCYTES ABSOLUTE AUTO 0.82 K/mm3 (0.84-5.20); LYMPHOCYTES PERCENT AUTO 7 % (21-46); MONOCYTES ABSOLUTE AUTO 0.36 K/mm3 (0.16-1.47); MONOCYTES PERCENT AUTO 3 % (4-13); Mean Corpuscular HGB Conc 34.2 g/dL (31.5-36.5); Mean Corpuscular Volume 87 fL (80-100); NEUTROPHILS ABSOLUTE AUTO 10.06 K/mm3 (1.96-9.15); NEUTROPHILS PERCENT AUTO 88 % (41-73); NRBC ABSOLUTE 0.00 K/mm3 (0.00-0.02); NRBC Auto 0.0 /100 WBC (0.0-0.2); Platelet Count 337 K/mm3 (150-400); RDW Coefficient Variation 14.9 % (11.7-14.2); RDW Standard Deviation 47.6 fL (35.1-46.3)
[2025-01-02 10:51] LABS: pH Blood Venous 7.42 (7.34-7.37)
[2025-01-02 11:06] LABS: Alanine Aminotransfer (ALT/SGP 33.0 U/L (12-78); Albumin, Blood 3.7 g/dL (3.4-5.0); Albumin/Globulin Ratio 1.2 (0.8-1.8); Anion Gap 8.0 mmol/L (3-11); Aspartate Aminotrans (AST/SGOT 16.0 U/L (12-37); Bilirubin, Total 0.3 mg/dL (0.1-1.0); Blood Urea Nitrogen 14.0 mg/dL (8-24); CO2, Blood 28.0 mmol/L (21-32); Calcium, Blood 9.7 mg/dL (8.5-10.1); Chloride, Blood 104.0 mmol/L (98-108); Creatinine, Blood 0.84 mg/dL (0.40-1.00); Globulin, Blood 3.2 g/dL (2.2-4.0); Glucose, Blood 147.0 mg/dL (70-99); Magnesium, Blood 2.1 mg/dL (1.6-2.4); Potassium, Blood 3.8 mmol/L (3.5-5.5); Sodium, Blood 136.0 mmol/L (136-145); Total Protein, Blood 6.9 g/dL (6.4-8.2)
[2025-01-02] MEDS ORDERED: Albuterol 2.5 MG/3 ML VIAL INH ONE (12:40)
[2025-01-02] MEDS ORDERED: Ipratropium/Albuterol SulF 2.5-0.5MG/3 ML Amp INH SCH (13:35)
[2025-01-02] MEDS ORDERED: FLU VACC TS2025-26(6MOS UP)/PF 45 MCG/0.5 ML SYRINGE IM SCH (14:00)
[2025-01-02] MEDS ORDERED: Formoterol/Mometasone MDI 5/200 mcg 13 GM INH SCH (14:05)
[2025-01-02] MEDS ORDERED: Albuterol HFA200 ACT/6.7 GM INH INH PRN (14:05)
[2025-01-02] MEDS ORDERED: Insulin Human Lispro 100 Units/ML 3ML Syringe SC SCH (16:30)
[2025-01-02 16:48] VITALS: BP 179/71
[2025-01-02] MEDS ORDERED: NS 250 ML IV PRN (17:45)
--- NOTE | 2025-01-02 18:44 | NUR ---
NOTE: PATIENT ADMITTED FROM ER TO ROOM 308. PATIENT ORIENTED TO CALL LIGHT AND SYSTEM AND EDUCATED TO CALL FOR ASSISTANCE BEFORE STANDING. FEMALE SOFÍAWICK REMOVED D/T ABILITY TO STAND-PIV TO C c 1A. PATIENT A+O X4 AND ABLE TO MAKE NEEDS KNOWN. PATIENT MEDICATED PER EMAR FOR HIGH BLOOD GLUCOSE, SEE FOR DETAILS. PATIENT OBSERVATION STATUS, PLAN TO POSSIBLY D/C 01/03/25. BI-PAP/C-PAP IN ROOM JUST IN CASE OF ACUTE ASTHMA EXACERBATION. PLAN TO GIVE REPORT TO ONCOMING RN.
[2025-01-02 19:58] VITALS: BP 159/64
[2025-01-02 23:57] VITALS: BP 108/87
[2025-01-03 04:52] VITALS: BP 150/63
[2025-01-03 05:29] LABS: BASOPHILS ABSOLUTE AUTO 0.02 K/mm3 (0.00-0.23); BASOPHILS PERCENT AUTO 0 % (0-2); EOSINOPHILS ABSOLUTE AUTO 0.00 K/mm3 (0.00-0.68); EOSINOPHILS PERCENT AUTO 0 % (0-6); Hematocrit 34.2 % (33.0-51.0); Hemoglobin 11.4 g/dL (11.5-16.0); IMMATURE GRAN ABSOLUTE AUTO 0.19 K/mm3 (0.00-0.10); IMMATURE GRAN PERCENT AUTO 2 % (0-1); LYMPHOCYTES ABSOLUTE AUTO 0.81 K/mm3 (0.84-5.20); LYMPHOCYTES PERCENT AUTO 6 % (21-46); MONOCYTES ABSOLUTE AUTO 0.24 K/mm3 (0.16-1.47); MONOCYTES PERCENT AUTO 2 % (4-13); Mean Corpuscular HGB Conc 33.3 g/dL (31.5-36.5); Mean Corpuscular Volume 87 fL (80-100); NEUTROPHILS ABSOLUTE AUTO 11.51 K/mm3 (1.96-9.15); NEUTROPHILS PERCENT AUTO 90 % (41-73); NRBC ABSOLUTE 0.00 K/mm3 (0.00-0.02); NRBC Auto 0.0 /100 WBC (0.0-0.2); Platelet Count 349 K/mm3 (150-400); RDW Coefficient Variation 15.0 % (11.7-14.2); RDW Standard Deviation 47.0 fL (35.1-46.3)
--- NOTE | 2025-01-03 05:33 | NUR ---
SHIFT SUMMARY: PT AOX4, SBA/1PA TO THE BSC. CALLS APPROPRIATELY AND ABLE TO MAKE NEEDS KNOWN. TOLERATING MEDICATIONS WELL. HAS A MEDIPORT ACCESSED RUNNING [facility]. PT VERY PLEASANT AND STATES TO BE FEELING BETTER. WANTS TO TRY AND WALK TODAY. PT DENIES CP OR SOB. HAVING GOOD PO INTAKE ASWELL OUTPUT. PT IN BED RESTING, BED IN LOWEST POSITION, CALL LIGHT IN REACH. CONTINUING CARE.
[2025-01-03 06:25] LABS: Anion Gap 7.0 mmol/L (3-11); Blood Urea Nitrogen 15.0 mg/dL (8-24); CO2, Blood 26.0 mmol/L (21-32); Calcium, Blood 9.4 mg/dL (8.5-10.1); Chloride, Blood 104.0 mmol/L (98-108); Creatinine, Blood 0.75 mg/dL (0.40-1.00); Glucose, Blood 219.0 mg/dL (70-99); Potassium, Blood 4.1 mmol/L (3.5-5.5); Sodium, Blood 133.0 mmol/L (136-145)
[2025-01-03 07:58] VITALS: BP 164/88
[2025-01-03] MEDS ORDERED: Tambocor100 MG PO (10:37)
--- NOTE | 2025-01-03 11:46 | NUR ---
Upon receiving a refferal for spiritual care, I visited the patient. She tells me about her previous COVID diagnosis and her long struggle to recover, her asthma and her hopes that this hospital stay will not be too long and drawn out. She then talks about the family unit complications and we explore possible paths for being helpful but not enabling. She shared about her britni, about a veterans conference that she went to, and about her hopes for the future. I provided therapeutic listening, gentle service counselor and prayer. The patient responded well and showed signs of catharsis and greater peace. I will cotninue to remain available to the patient and family.
[2025-01-03] MEDS ORDERED: OZEMPIC 2 MG/3 ML SC SCH (13:50)
[2025-01-03 16:56] VITALS: BP 111/49
--- NOTE | 2025-01-03 17:10 | NUR ---
SHIFT SUMMARY: NO NEW OR ACUTE CHANGES DURING THIS SHIFT. PATIENT REMAINS OPTOMISTIC ABOUT SUBTLE PROGRESS. LUNGS REMAIN TIGHT AND DIMINISHED IN MOST AREAS. PLAN TO CONTINUE STERIOD USAGE AND RE-EVALUATE 01/04/25. PATIENT A+O X4 AND ABLE TO MAKE NEEDS KNOWN. AMBULATED TO BATHROOM X2 c FWW AND NURSING PERSONEL. PATIENT NOTED TO BE HAVING DIFFICULTY CATCHING THEIR BREATH. RE-EDUCATED PATIENT ON TAKING BREAKS THROUGHOUT PROCESS AND NOTIFYING NURSING PERSONEL OF ANY ABNORMAL CHANGED. PATIENT VERBALIZED UNDERSTANDING. WILL CONTINUE TO MONITOR UNTIL ONCOMING RN.
[2025-01-03 19:36] VITALS: BP 141/38
[2025-01-04 00:30] VITALS: BP 159/66
[2025-01-04 04:40] VITALS: BP 146/64
--- NOTE | 2025-01-04 06:46 | NUR ---
SHIFT SUMMARY AT START OF SHIFT, PT SITTING UP IN BED. SHE IS IN GOOD SPIRITS AND PLEASANT AND COOPERATIVE WITH HER CARE. SHE IS AWAKE AND WATCHING TV. PT BLOOD SUGAR HS 251. MEDICATED PER EMAR. PT UP MOST OF THE NIGHT. SLEPT FOR A SHORT TIME WITH CPAP IN PLACE.
[2025-01-04] MEDS ORDERED: Insulin Human Lispro 100 Units/ML 3ML Syringe SC SCH (07:30)
[2025-01-04 07:41] VITALS: BP 173/73
[2025-01-04 07:43] VITALS: BP 138/63
--- NOTE | 2025-01-04 12:49 | NUR ---
SHIFT/DISCHARGE SUMMARY: PATIENT A/OX4, PLEASANT AND COOPERATIVE c CARE. PATIENT DENIES CP/PRESSURE, SOB, N/V AND DIZIZNESS. PATIENT ON TELE, SR HR IN THE HIGH 70'S BPM. PATIENT ON RA, SATTING 99-100%, LUNGS TIGHT/DIM T/O TO AUSCULTATION. PATIENT RECEIVED SCHEDULED MEDS PER EMAR. VITAL SIGNS REVIEWED. PATIENT DECLINED BLOOD SUGAR ACCU CHECK BEFORE LUNCH. MEDIPORT DEACCESS-HEPARIN LOCK PER ORDER. PATIENT DISCHARGE HOME. DISCHARGE INSTRUCTIONS PACKET GIVEN TO PATIENT. ASHA TURNER RN EDUCATED PATIENT ON ADMITTING DX'S, S/S, TX, NEW RX AND TO F/U c PCP AND PULMONOLOGY. PATIENT VERBALIZED UNDERSTANDING AND NO FURTHER QUESTIONS. RX WAS FAXED TO [facility]. ALL PERSONAL BELONGINGS WERE SENT c PATIENT. PATIENT LEFT THE ROOM AT 1225, TRANSPORTED VIA BY MICHEL TO PATIENT ENTRANCE.
== END 2025-01-04 12:30 | disposition home or self-care (01) | DRG 203 ==
LOC: ER 09:44 → MEDS 09:45 → ENPENDDIS 01-04 11:09 → MEDS 01-04 12:30
PROVIDERS: Emergency Medicine; ADMIT Student in an Organized Health Care Education/Training Program
PROC: 5A09357 Assistance with Respiratory Ventilation, Less than 24 Consecutive Hours, Continuous Positive Airway Pressure (ICD-10-PCS; principal; 2025-01-02)
DX: J45.51 Severe persistent asthma with (acute) exacerbation (principal); I10 Essential (primary) hypertension; G47.00 Insomnia, unspecified; G47.33 Obstructive sleep apnea (adult) (pediatric); I48.0 Paroxysmal atrial fibrillation; E09.9 Drug or chemical induced diabetes mellitus without complications; M81.8 Other osteoporosis without current pathological fracture; T38.0X5A Adverse effect of glucocorticoids and synthetic analogues, initial encounter; D72.829 Elevated white blood cell count, unspecified; Z88.8 Allergy status to other drugs, medicaments and biological substances; Z88.5 Allergy status to narcotic agent; Z88.0 Allergy status to penicillin; Z88.1 Allergy status to other antibiotic agents; Z86.16 Personal history of COVID-19; Z79.85 Long-term (current) use of injectable non-insulin antidiabetic drugs; Z79.52 Long term (current) use of systemic steroids; Z79.01 Long term (current) use of anticoagulants; Z79.51 Long term (current) use of inhaled steroids; Z79.4 Long term (current) use of insulin; Z85.3 Personal history of malignant neoplasm of breast
CPT/HCPCS: 71045; 80048; 80053; 82803; 82947; 83735; 83880; 84484; 85025; 94640; 94644; 94660; 94664; 94762; 96365; 96366; 96375; 96376; 99285-25; A6590; A9270; G0378; J1642; J2919; J3475; J7050